=== PATIENT | female | born 1980 | race Caucasian/White ===

== ENCOUNTER 2016-08-09 17:55 | Emergency (ER) | payer MEDICAID ==
[2016-08-09] MEDS ORDERED: PANTOPRAZOLE SODIUM 40 MG VIAL ONE (18:29)
[2016-08-09] MEDS: NS 1,000 ML IV ONE ×2 (18:31→19:18)
[2016-08-09] MEDS: PANTOPRAZOLE SODIUM 40 MG in NS 100 ML IV ONE ×2 (18:32→18:39)
[2016-08-09] MEDS: ONDANSETRON 4 MG/2 ML VIAL IVP ONE (18:32)
--- NOTE | 2016-08-09 18:36 | EDPHY ---
H & P Time Seen by Provider: 08/09/16 18:16 HPI/ROS: CHIEF COMPLAINT: Abdominal pain, vomiting HISTORY OF PRESENT ILLNESS: 35-year-old female presents to the emergency department with multiple episodes of vomiting since early this morning. Patient states that she has known peptic ulcer disease. She is prescribed Prilosec twice daily. She states that she drank alcohol last night and then was in custodial overnight. She did not receive her Prilosec. She also has chronic pain from back injury. The patient has been without her OxyContin, Valium and trazodone. She states that she has been vomiting blood. She has had this happen to her in the past. She has had a previous endoscopy. She has also had watery diarrhea. She describes diffuse abdominal cramping. No chest pain or difficulty breathing. She has not noticed any blood in her stool or melena. No fevers or chills. REVIEW OF SYSTEMS: Constitutional: No fever, no chills. Eyes: No double or blurry vision. ENT: No sore throat. Respiratory: No cough, no shortness of breath. Cardiac: No chest pain. Gastrointestinal: As above Genitourinary: No dysuria. Musculoskeletal: No neck or back pain. Skin: No rashes. Neurological: No headache. Past Medical/Surgical History: Chronic back pain, narcotic dependence, peptic ulcer disease Social History: Smoking Status: Current every day smoker Physical Exam: General Appearance: Alert, no distress. 147/92, heart rate 88 Eyes: Pupils equal and round. Extraocular motions are all intact. ENT: Mouth: Mucous membranes moist. Respiratory: No wheezing, rhonchi, or rales, lungs are clear to auscultation. Cardiovascular: Regular rate and rhythm. Gastrointestinal: Abdomen is soft. Mild tenderness with palpation in the epigastric area. There is no rebound, guarding or masses noted. No CVA tenderness bilaterally. Neurological: Alert and oriented x 3, cranial nerves II through XII grossly intact Skin: Warm and dry, no rashes. Musculoskeletal: Nontender to palpate along the cervical, thoracic or lumbar spine. Neck is supple. Extremities: Hands bilaterally are cramped and held in flexion consistent with carpal pedal spasms. Psychiatric: Patient is oriented X 3, there is no agitation. Constitutional: Initial Vital Signs Temperature (C) 36.7 C 08/09/16 17:59 Heart Rate 88 08/09/16 17:59 Respiratory Rate 20 08/09/16 17:59 Blood Pressure 147/92 H 08/09/16 17:59 O2 Sat (%) 94 08/09/16 17:59 O2 Delivery Mode Room Air Allergies/Adverse Reactions: No Known Allergies Allergy (Unverified 08/09/16 17:58) Home Medications: Medication Instructions Recorded Diazepam [Valium 5 MG (*)] 5 mg PO 08/09/16 Omeprazole [Prilosec 20 mg] 20 mg PO DAILY 08/09/16 oxyCODONE IR [Oxycodone Ir (*)] 15 mg PO 08/09/16 traZODone [traZODONE 50MG (*)] 50 mg PO 08/09/16 Medical Decision Making ED Course/Re-evaluation: Patient had IV established and was given 40 mg of Protonix IV, 1 mg of Ativan IV , and 4 mg of Zofran IV. She also received IV normal saline. The patient has carpal pedal spasms and I explained that this was likely from her hyperventilating or possibly from withdrawal. Again she was given IV Ativan. Laboratory studies are within normal limits. The patient is feeling much better. She is tolerating p.o. fluids. She will be discharged home. Patient does not have an acute abdomen. I do not think imaging studies are necessary. The patient has history of peptic ulcer disease and GERD and she feels that these symptoms are very similar. The patient also has a history of chronic pain and takes chronic long-term opiates including OxyContin. It is possible because she was in custodial and did not receive this medication that she is experiencing symptoms of withdrawal. Differential Diagnosis: Including but not limited to peptic ulcer disease, GERD, pancreatitis, cholecystitis, cholelithiasis, GI bleed, withdrawal - Data Points Laboratory Results: Laboratory Results 08/09/16 18:23 08/09/16 18:23 08/09/16 08/09/16 08/09/16 18:23 18:23 18:23 WBC 15.01 10^3/uL H 10^3/uL (3.80-9.50) RBC 4.68 10^6/uL 10^6/uL (4.18-5.33) Hgb 16.0 g/dL g/dL (12.6-16.3) Hct 43.8 % % (38.0-47.0) MCV 93.6 fL fL (81.5-99.8) MCH 34.2 pg H pg (27.9-34.1) MCHC 36.5 g/dL g/dL (32.4-36.7) RDW 11.9 % % (11.5-15.2) Plt Count 354 10^3/uL 10^3/uL (150-400) MPV 9.1 fL fL (8.7-11.7) Neut % (Auto) 86.6 % H % (39.3-74.2) Lymph % (Auto) 9.2 % L % (15.0-45.0) [place] % (Auto) 3.1 % L % (4.5-13.0) Eos % (Auto) 0.1 % L % (0.6-7.6) Baso % (Auto) 0.5 % % (0.3-1.7) Nucleat RBC Rel Count 0.0 % % (0.0-0.2) Absolute Neuts (auto) 12.99 10^3/uL H 10^3/uL (1.70-6.50) Absolute Lymphs (auto) 1.38 10^3/uL 10^3/uL (1.00-3.00) Absolute Monos (auto) 0.47 10^3/uL 10^3/uL (0.30-0.80) Absolute Eos (auto) 0.01 10^3/uL L 10^3/uL (0.03-0.40) Absolute Basos (auto) 0.08 10^3/uL 10^3/uL (0.02-0.10) Absolute Nucleated RBC 0.00 10^3/uL 10^3/uL (0-0.01) Immature Gran % 0.5 % % (0.0-1.1) Immature Gran # 0.08 10^3/uL 10^3/uL (0.00-0.10) Sodium 139 mEq/L mEq/L (134-144) Potassium 4.1 mEq/L mEq/L (3.5-5.2) Chloride 98 mEq/L mEq/L (97-110) Carbon Dioxide 21 mEq/l L mEq/l (22-31) Anion Gap 20 mEq/L H mEq/L (8-16) BUN 19 mg/dL mg/dL (7-23) Creatinine 0.7 mg/dL mg/dL (0.6-1.0) Estimated GFR > 60 Glucose 92 mg/dL mg/dL (70-100) Calcium 9.8 mg/dL mg/dL (8.5-10.4) Total Bilirubin 1.7 mg/dL H mg/dL (0.1-1.4) Conjugated Bilirubin 0.5 mg/dL mg/dL (0.0-0.5) Unconjugated Bilirubin 1.2 mg/dL H mg/dL (0.0-1.1) AST 73 IU/L H IU/L (14-46) ALT 72 IU/L H IU/L (9-52) Alkaline Phosphatase 93 IU/L IU/L (38-126) Total Protein 8.9 g/dL H g/dL (6.3-8.2) Albumin 5.0 g/dL g/dL (3.5-5.0) Lipase 42.0 IU/L IU/L (23-300) Beta HCG, Qual NEGATIVE Specimen Hemolysis 102 Medications Given: Discontinued Medications Sodium Chloride (Ns) 1,000 mls @ 0 mls/hr IV ONCE ONE PRN Reason: Wide Open Stop: 08/09/16 18:26 Last Admin: 08/09/16 18:31 Dose: 1,000 mls Pantoprazole Sodium 40 mg/ (Sodium Chloride) 100 mls @ 200 mls/hr IV ONCE ONE Stop: 08/09/16 19:00 Last Admin: 08/09/16 18:32 Dose: 100 mls Sodium Chloride (Ns) 1,000 mls @ 0 mls/hr IV ONCE ONE PRN Reason: Wide Open Stop: 08/09/16 18:33 Last Admin: 08/09/16 19:18 Dose: 1,000 mls Pantoprazole Sodium 40 mg/ (Sodium Chloride) 100 mls @ 200 mls/hr IV EDNOW ONE Stop: 08/09/16 19:01 Last Admin: 08/09/16 18:39 Dose: Not Given Lorazepam (Ativan Injection) 1 mg IVP EDNOW ONE Stop: 08/09/16 18:33 Last Admin: 08/09/16 18:39 Dose: 1 mg Ondansetron HCl (Zofran) 4 mg IVP EDNOW ONE Stop: 08/09/16 18:26 Last Admin: 08/09/16 18:32 Dose: 4 mg Departure - Departure Disposition: Home, Routine, Self-Care Clinical Impression: Vomiting Qualifiers: Vomiting type: unspecified Vomiting Intractability: non-intractable Nausea presence: with nausea Qualified Code(s): R11.2 - Nausea with vomiting, unspecified Condition: Good Instructions: Acute Nausea and Vomiting (ED), Acute Abdominal Pain (ED) Additional Instructions: Clear liquids and then slowly advance diet as tolerated. Follow up with instrument lens grinder apprentice. Return if you develop recurring vomiting, fever, blood in her vomit, or if you feel worse in any way. Referrals: TYSON MARES [Other] - As per Instructions Brent Mckenzie MD [Medical Doctor] - As per Instructions (Fundraising Sale Representative on-call )
[2016-08-09] MEDS: LORazepam 2 MG/ML INJ IVP ONE (18:39)
[2016-08-09 18:41] LABS: % IMMATURE GRANULYOCYTES 0.5 % (0.0-1.1); ABSOLUTE IMMATURE GRANULOCYTES 0.08 10^3/uL (0.00-0.10); ADD DIFF? NO; ADD MORPH? NO; ADD SCAN? NO; ATYPICAL LYMPHOCYTE FLAG 0 (0-99); FRAGMENT RBC FLAG 0 (0-99); HEMATOCRIT 43.8 % (38.0-47.0); LEFT SHIFT FLG 0 (0-99); LIPEMIA HEMOLYSIS FLAG 90 (0-99); MEAN CELL HEMOGLOBIN 34.2 pg (27.9-34.1); MEAN CELL HEMOGLOBIN CONCENTR. 36.5 g/dL (32.4-36.7); MEAN CELL VOLUME 93.6 fL (81.5-99.8); MEAN PLATELET VOLUME 9.1 fL (8.7-11.7); PLATELET CLUMPS FLAG 0 (0-99); PLATELET COUNT 354 10^3/uL (150-400); RED BLOOD CELL COUNT 4.68 10^6/uL (4.18-5.33); RED CELL DISTRIBUTION WIDTH 11.9 % (11.5-15.2)
[2016-08-09 18:57] LABS: ALANINE AMINOTRANSFERASE 72 IU/L (9-52); ALKALINE PHOSPHATASE 93 IU/L (38-126); ANION GAP 20 mEq/L (8-16); ASPARTATE AMINOTRANSFERASE 73 IU/L (14-46); BILIRUBIN,TOTAL 1.7 mg/dL (0.1-1.4); BILIRUBIN-CONJUGATED 0.5 mg/dL (0.0-0.5); BILIRUBIN-UNCONJUGATED 1.2 mg/dL (0.0-1.1); CALCIUM 9.8 mg/dL (8.5-10.4); CARBON DIOXIDE 21 mEq/l (22-31); CHLORIDE 98 mEq/L (97-110); CREATININE 0.7 mg/dL (0.6-1.0); GLOMERULAR FILTRATION RATE > 60; GLUCOSE 92 mg/dL (70-100); POTASSIUM 4.1 mEq/L (3.5-5.2); SODIUM 139 mEq/L (134-144); SPECIMEN HEMOLYSIS 102; TOTAL PROTEIN 8.9 g/dL (6.3-8.2)
[2016-08-09 20:32] VITALS: BP 139/85; PULSE 82; RESP 16; TEMP 98.4; O2SAT 96
== END 2016-08-09 20:29 | disposition home or self-care (01) ==
DX: R11.2 Nausea with vomiting, unspecified (principal); F17.200 Nicotine dependence, unspecified, uncomplicated
CPT/HCPCS: 96365; J2060; J2405